=== PATIENT | female | born 1995 | race Caucasian/White ===

== ENCOUNTER 2017-01-26 01:02 | Emergency (ER) | payer BC, OTHER ==
[~2017-01-26] VITALS: Ht 162.6 cm; Wt 56.8 kg
[~2017-01-26 01:02] MED LIST: BCPILLS PO
[2017-01-26 01:08] VITALS: TEMP 37.2; Ht 162.6 cm; Wt 56.8 kg
[2017-01-26 01:43] LABS: HEMATOCRIT 34.2 % (37-47); MEAN CELL VOLUME 88.4 fL (80-100); MEAN CORPUSCULAR HGB CONC 35.1 g/dl (32-36); MEAN PLATELET VOLUME 10.2 fL (7.4-10.4); PLATELET COUNT 226 K/uL (130-400); RED BLOOD COUNT 3.87 M/uL (4.2-5.4); WHITE BLOOD COUNT 8.97 K/uL (4.8-10.8)
[2017-01-26 01:56] LABS: URINE APPEARANCE CLOUDY (CLEAR); URINE BILIRUBIN NEG (NEG); URINE COLOR YELLOW; URINE EPITHELIAL CELL AUTO >30 /lpf (0-5); URINE NITRITE NEG (NEG); URINE PH 6.5 (4.5-7.5); URINE SPECIFIC GRAVITY 1.024 (1.000-1.030); UROBILINOGEN NEG (NEG)
[2017-01-26 01:57] LABS: MANUAL MICROSCOPIC REQUIRED? NO; REVIEW REQ? YES
[2017-01-26 02:02] LABS: ALT/SGPT 100 U/L (12-78); AST/SGOT 192 U/L (15-37); BLOOD UREA NITROGEN 12 mg/dl (7-18); BUN/CREATININE RATIO 15.4 (10-20); CARBON DIOXIDE 25 mmol/L (21-32); CHLORIDE 105 mmol/L (98-107); CREATININE 0.78 mg/dl (0.60-1.20); GLUCOSE 96 mg/dl (70-99); POTASSIUM 3.8 mmol/L (3.5-5.1); SODIUM 140 mmol/L (136-145)
[2017-01-26 02:07] LABS: CALCIUM 9.6 mg/dl (8.5-10.1)
[2017-01-26 02:10] LABS: URINE MUCUS PRESENT (NONE PRSENT)
[2017-01-26 02:12] LABS: ALKALINE PHOSPHATASE 58 U/L (45-117)
[2017-01-26] MEDS ORDERED: [UNRECOGNIZED DRUG - CODE] PO (02:13)
[2017-01-26 02:15] LABS: BENZODIAZEPINE, URINE NEG (NEG); COCAINE,URINE NEG (NEG); PHENCYCLIDINE, URINE NEG (NEG)
[2017-01-26 02:20] LABS: BASO % 0.2 %; BASO ABS # 0.02 K/uL (0-0.2); COMPLETE YES; EOS % 0.8 %; IG% 0.3 %; LYMPH % 21.6 %; LYMPH ABS # 1.94 K/uL (1.2-3.4); MONO % 9.1 %
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
[2017-01-26 10:25] VITALS: BP 108/77; PULSE 110; O2SAT 96
--- NOTE | 2017-01-26 21:02 | EMERGENCY ROOM VISIT NOTE ---
ED Visit Note First contact with patient: 07:39 I received this pt in signout at the change of shift from Dr Castillo, pending MH evaluation. Pt was accepted on a 201 to the [facility]. Secure transport arrangements were made. Please refer to Dr Castillo's notes for further details.
== END 2017-01-26 10:24 ==
LOC: C.EDB 01:03 → C.EDA 10:24
DX: F39 Unspecified mood [affective] disorder (principal); R45.851 Suicidal ideations; R74.0 Nonspecific elevation of levels of transaminase and lactic acid dehydrogenase [LDH]; Z83.3 Family history of diabetes mellitus; Z82.49 Family history of ischemic heart disease and other diseases of the circulatory system

== ENCOUNTER 2022-08-26 01:42 | Inpatient (IN) ==
[2022-08-26] MEDS ORDERED: ONDANSETRON INJ 2 MG/ML 2 ML VIAL IV STA (01:58)
[2022-08-26] MEDS: MoRPHine SULFATE 4 MG/ML 1 ML CARP\\VIAL IV PRN ×2 (02:31→06:34)
[2022-08-26 03:15] LABS: Basophils # (auto) 0.04 K/uL (0-0.2); Basophils % (auto) 0.3 %; Eosinophils # (auto) 0.09 K/uL (0-0.50); Eosinophils % (auto) 0.6 %; Hematocrit (blood only) 29.4 % (34.1-44.9); Hemoglobin 10.2 g/dl (12.0-16.0); Immature Granulocytes # (auto) 0.06 K/uL (0.00-0.02); Immature Granulocytes % (auto) 0.4 %; Lymphocytes # (auto) 2.56 K/uL (1.2-3.4); Lymphocytes % (auto) 16.8 %; Mean Corpuscular Hemoglobin 31.9 pg (25.0-34.0); Mean Corpuscular Hgb Conc 34.7 g/dL (32.0-36.0); Mean Corpuscular Volume 91.9 fL (80.0-100.0); Mean Platelet Volume 11.4 fL (9.4-12.3); Monocytes # (auto) 0.91 K/uL (0.24-0.82); Neutrophils # (auto) 11.62 K/uL (1.4-6.5); Neutrophils % (auto) 75.9 %; Platelet Count 231 K/uL (130-400); RDW Coefficient of Variation 11.8 % (11.5-14.5); RDW Standard Deviation 39.5 fL (36.4-46.3); White Blood Count 15.28 K/ul (4.8-10.8)
[2022-08-26 03:28] LABS: Albumin Globulin Ratio 1.3 (0.9-2); Albumin Level 4.2 gm/dl (3.4-5.0); BUN Creatinine Ratio 15.3 (10-20); Bilirubin,Total 0.3 mg/dl (0.2-1.0); Creatinine Clr Calc Pharmacy 103.1 ml/min; Est GFR (African American) 134.9 ml/min; Est GFR (Non-African American) 116.4 ml/min; Globulin 3.2 gm/dl (2.5-4.0); Magnesium 2.1 mg/dl (1.7-2.4); Potassium 3.6 mmol/L (3.5-5.1); Total Protein 7.4 gm/dl (6.0-8.3)
[2022-08-26 03:29] LABS: Pregnancy Test, Serum Negative (Negative)
[2022-08-26] MEDS ORDERED: IOVERSOL 350 MG 100mL Prefilled Syringe IV ONE (04:58)
[2022-08-26] MEDS ORDERED: SODIUM CHLORIDE 0.9% 1000ML 1,000 ML IV SCH ×2 (06:00→06:30)
[2022-08-26 06:14] LABS: iSTAT Creatinine 0.5 mg/dl (0.6-1.3); iSTAT Hemoglobin 8.8 g/dl (12.0-16.0); iSTAT Ionized Calcium 1.21 mmol/l (1.12-1.32); iSTAT Potassium 3.8 mmol/L (3.3-5.0)
[2022-08-26] MEDS ORDERED: SODIUM CHLORIDE 0.9% 250 ML IV PRN (07:36)
--- NOTE | 2022-08-26 07:44 | History & Physical Bridge Note ---
Date of Service August 26, 2022 History & Physical Bridge Note I have examined the patient, reviewed the History & Physical and in the interval since the performance of the History & Physical I have noted the following changes of clinical significance: no changes noted
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
--- NOTE | 2022-08-26 07:52 | Emergency Department Note ---
History of Present Illness General Chief complaint: Abdominal Pain Stated complaint: SEVERE LOWER ABD PAIN,VOMITING AND DIARRHEA Time Seen by Provider: 08/26/22 01:58 History of Present Illness Maximum Pain Intensity: 7 This is a 26-year-old female presenting to the emergency department for evaluation of very low abdominal pain that began roughly 4 hours prior to arrival. The patient states that she was having intercourse with a male partner when she had a large amount of lower abdominal pain. The patient has had a few episodes of postcoital pain in the past but nothing to this extent. She does not have any fevers or chills. No chest pain, chest tightness, shortness of breath. No vaginal bleeding, drainage, or discharge. No concern for STDs. The patient is on control and does not believe that she is . She rates her discomfort a 7/10. Home Medications Medication Instructions Recorded Confirmed Type famotidine 40 mg tablet (Pepcid) 40 mg PO HS #30 tabs 06/13/21 Rx norethindrone acetate 1 mg-ethinyl 1 tab PO DAILY 06/13/21 06/13/21 History estradiol 20 mcg tablet (Crystal) prednisone 20 mg tablet See Rx Instructions .Route 06/13/21 Rx .COMPLEX #7 tabs Allergies Allergy/AdvReac Type Severity Reaction Status Date / Time latex Allergy Unknown UNKNOWN Verified 06/13/21 13:42 Past Med/Surg History Medical History Ruptured ovarian cyst Seizure-like activity Syncope Surgical History Surgical history unknown Social History Smoking Status: Never smoker Feels Safe at Home: Yes Review of Systems A total of 10 systems reviewed and were otherwise negative Physical Exam Vital Signs Vital Signs - 24 hr 08/26/22 01:46 08/26/22 05:30 08/26/22 04:00 Temperature 36.0 C L Temperature Source Temporal Artery Scan Pulse Rate 120 H 70 68 Pulse Rate [Apical] Pulse Rhythm [Apical] Pulse Strength [Apical] Respiratory Rate 18 17 17 Respiratory Effort / Characteristics Respiratory Depth Blood Pressure 99/57 L 95/52 L 99/55 L Blood Pressure [Left Arm] Blood Pressure Mean 71 66 69 Blood Pressure Mean [Left Arm] Pulse Oximetry 95 99 99 Oxygen Delivery Method Room Air Room Air Room Air Sepsis Recent Fever Within 48 Hours No Sepsis New/Unexplained Change in Mental Status No Sepsis Action Taken by Nursing No Action Required 08/26/22 03:30 08/26/22 07:30 Temperature Temperature Source Pulse Rate 77 Pulse Rate [Apical] 83 Pulse Rhythm [Apical] Regular Pulse Strength [Apical] Normal Respiratory Rate 16 18 Respiratory Effort / Characteristics Non-Labored Spontaneous Respiratory Depth Normal Blood Pressure 105/62 Blood Pressure [Left Arm] 104/57 L Blood Pressure Mean 76 Blood Pressure Mean [Left Arm] 72 Pulse Oximetry 96 97 Oxygen Delivery Method Room Air Sepsis Recent Fever Within 48 Hours Sepsis New/Unexplained Change in Mental Status Sepsis Action Taken by Nursing VITALS: Vitals are noted on the nurse's note and reviewed by myself. Vital signs with tachycardia GENERAL: Well-developed, well-nourished, white female, who is pale and moderately uncomfortable. HEAD: Normocephalic atraumatic. NECK: Supple without nuchal rigidity. No lymphadenopathy. No thyromegaly. Cervical spine is nontender. HEART: Regular rate and rhythm without murmurs gallops or rubs. LUNGS: Clear to auscultation bilaterally without wheezes, rales or rhonchi. No retractions or accessory muscle use. ABDOMEN: Positive normal bowel sounds x 4. Soft diffuse lower tenderness. MUSCULOSKELETAL: No muscle atrophy, erythema, or edema noted. Full range of motion in all extremities. Course Administered Medications Morphine Sulfate (Morphine Sulfate 4 Mg/Ml 1 Ml Carp\Vial) 4 mg IV Q30M PRN PRN Reason: Pain Stop: 09/09/22 01:57 Last Admin: 08/26/22 06:34 Dose: 4 mg Documented By: Admin: 08/26/22 02:31 Dose: 4 mg Documented By: SHANDA Discontinued Medications Sodium Chloride (Nss 1000ml) 1,000 mls @ 999 mls/hr IV .Q1H1M BJORN Stop: 08/26/22 07:00 Last Infusion: 08/26/22 03:31 Dose: 0 mls/hr Documented By: Admin: 08/26/22 02:30 Dose: 999 mls/hr Documented By: SHANDA Sodium Chloride (Nss 1000ml) 1,000 mls @ 999 mls/hr IV .Q1H1M BJORN Stop: 08/26/22 07:30 Last Infusion: 08/26/22 07:35 Dose: 0 mls/hr Documented By: Admin: 08/26/22 06:34 Dose: 999 mls/hr Documented By: SHANDA Ioversol (Ioversol 350 Mg 100ml Prefilled Syringe) 94 ml IV ONCE ONE Stop: 08/26/22 04:59 Last Admin: 08/26/22 04:59 Dose: 94 ml Documented By: ADELE Ondansetron HCl (Ondansetron Inj 2 Mg/Ml 2 Ml Vial) 4 mg IV NOW STA Stop: 08/26/22 01:59 Last Admin: 08/26/22 02:30 Dose: 4 mg Documented By: SHANDA Medical Decision Making Differential Diagnosis Differential diagnosis: Etiologies such as biliary colic, cholecystitis, hepatitis, pancreatitis, cardiac disease, pancreatitis, gastritis, peptic ulcer disease, appendicitis, cystitis, diverticulitis, mesenteric ischemia, inflammatory bowel disease, ileus, bowel obstruction, testicular/adnexal torsion, aortic pathology, shingles, as well as others were considered Laboratory Data Result diagrams: 08/26/22 02:03 08/26/22 02:03 Lab Results 08/26/22 08/26/22 08/26/22 Range/Units 02:03 02:03 02:03 WBC 15.28 H (4.8-10.8) K/ul RBC 3.20 L (3.93-5.22) M/uL Hgb 10.2 L (12.0-16.0) g/dl POC Hgb (12.0-16.0) g/dl Hct 29.4 L (34.1-44.9) % POC Hct (37-47) % MCV 91.9 (80.0-100.0) fL MCH 31.9 (25.0-34.0) pg MCHC 34.7 (32.0-36.0) g/dL RDW Std Deviation 39.5 (36.4-46.3) fL RDW Coeff of Uday 11.8 (11.5-14.5) % Plt Count 231 (130-400) K/uL MPV 11.4 (9.4-12.3) fL Immature Gran % (Auto) 0.4 % Neut % (Auto) 75.9 % Lymph % (Auto) 16.8 % [place] % (Auto) 6.0 % Eos % (Auto) 0.6 % Baso % (Auto) 0.3 % Neut # (Auto) 11.62 H (1.4-6.5) K/uL Lymph # (Auto) 2.56 (1.2-3.4) K/uL [place] # (Auto) 0.91 H (0.24-0.82) K/uL Eos # (Auto) 0.09 (0-0.50) K/uL Baso # (Auto) 0.04 (0-0.2) K/uL Immature Gran # (Auto) 0.06 H (0.00-0.02) K/uL POC Sodium (135-144) mmol/L Sodium 135 L (136-145) mmol/L POC Potassium (3.3-5.0) mmol/L Potassium 3.6 (3.5-5.1) mmol/L POC Chloride (101-112) mmol/L Chloride 105 (98-107) mmol/L Carbon Dioxide 21 (21-32) mmol/L POC Total CO2 (24-31) mmol/L Anion Gap 9 (3-11) POC Anion Gap (16-25) mmol/L POC BUN (7-18) mg/dl BUN 11 (6-23) mg/dl Creatinine 0.72 (0.6-1.2) mg/dl POC Creatinine (0.6-1.3) mg/dl Est Cr Clr Drug Dosing 103.1 ml/min Est GFR ( Amer) 134.9 ml/min Est GFR (Non-Af Amer) 116.4 ml/min BUN/Creatinine Ratio 15.3 (10-20) Glucose 110 H (70-99(Fasting)) mg/dl POC Glucose (other) (70-99) mg/dl Calcium 9.0 (8.5-10.1) mg/dl POC Ioniz Calcium Geremias (1.12-1.32) mmol/l Magnesium 2.1 (1.7-2.4) mg/dl Total Bilirubin 0.3 (0.2-1.0) mg/dl AST 16 (13-39) U/L ALT 13 (7-52) U/L Alkaline Phosphatase 46 (34-104) U/L Total Protein 7.4 (6.0-8.3) gm/dl Albumin 4.2 (3.4-5.0) gm/dl Globulin 3.2 (2.5-4.0) gm/dl Albumin/Globulin Ratio 1.3 (0.9-2) Lipase 30 (11-82) U/L HCG, Qual Negative (Negative) SARS-CoV-2, RNA, NAAT (NEGATIVE) Blood Type Antibody Screen Crossmatch 08/26/22 08/26/22 08/26/22 Range/Units 06:01 06:27 06:40 WBC (4.8-10.8) K/ul RBC (3.93-5.22) M/uL Hgb (12.0-16.0) g/dl POC Hgb 8.8 L (12.0-16.0) g/dl Hct (34.1-44.9) % POC Hct 26 L (37-47) % MCV (80.0-100.0) fL MCH (25.0-34.0) pg MCHC (32.0-36.0) g/dL RDW Std Deviation (36.4-46.3) fL RDW Coeff of Uday (11.5-14.5) % Plt Count (130-400) K/uL MPV (9.4-12.3) fL Immature Gran % (Auto) % Neut % (Auto) % Lymph % (Auto) % [place] % (Auto) % Eos % (Auto) % Baso % (Auto) % Neut # (Auto) (1.4-6.5) K/uL Lymph # (Auto) (1.2-3.4) K/uL [place] # (Auto) (0.24-0.82) K/uL Eos # (Auto) (0-0.50) K/uL Baso # (Auto) (0-0.2) K/uL Immature Gran # (Auto) (0.00-0.02) K/uL POC Sodium 136 (135-144) mmol/L Sodium (136-145) mmol/L POC Potassium 3.8 (3.3-5.0) mmol/L Potassium (3.5-5.1) mmol/L POC Chloride 101 (101-112) mmol/L Chloride (98-107) mmol/L Carbon Dioxide (21-32) mmol/L POC Total CO2 22 L (24-31) mmol/L Anion Gap (3-11) POC Anion Gap 18.0 (16-25) mmol/L POC BUN 8 (7-18) mg/dl BUN (6-23) mg/dl Creatinine (0.6-1.2) mg/dl POC Creatinine 0.5 L (0.6-1.3) mg/dl Est Cr Clr Drug Dosing ml/min Est GFR ( Amer) ml/min Est GFR (Non-Af Amer) ml/min BUN/Creatinine Ratio (10-20) Glucose (70-99(Fasting)) mg/dl POC Glucose (other) 115 H (70-99) mg/dl Calcium (8.5-10.1) mg/dl POC Ioniz Calcium Geremias 1.21 (1.12-1.32) mmol/l Magnesium (1.7-2.4) mg/dl Total Bilirubin (0.2-1.0) mg/dl AST (13-39) U/L ALT (7-52) U/L Alkaline Phosphatase (34-104) U/L Total Protein (6.0-8.3) gm/dl Albumin (3.4-5.0) gm/dl Globulin (2.5-4.0) gm/dl Albumin/Globulin Ratio (0.9-2) Lipase (11-82) U/L HCG, Qual (Negative) SARS-CoV-2, RNA, NAAT NEGATIVE (NEGATIVE) Blood Type O Positive Antibody Screen NEGATIVE Crossmatch See Detail Imaging Data Radiologist's Impression: Abdomen/Pelvis CT 08/26/22 01:[address] WITH IV AND ORAL CONTRAST CT DOSE: 278.62 mGy.cm HISTORY: Lower abdominal pain TECHNIQUE: Multiaxial CT images of the abdomen and pelvis were performed following the use of intravenous and oral contrast. A dose lowering technique was utilized adhering to the principles of ALARA. COMPARISON STUDY: None. FINDINGS: The lung bases are clear. No pneumoperitoneum. No pneumatosis. No fractures within the visualized osseous structures. The liver, gallbladder, spleen, adrenal glands, pancreas, and kidneys are within normal limits. No retroperitoneal lymphadenopathy. Normal caliber abdominal aorta. The main portal vein is patent. The bladder, uterus, left ovary within normal limits. There is a partially collapsed thick-walled cyst within the right ovary measuring 2.4 cm. There is a small to moderate amount of hemoperitoneum seen throughout the abdomen and pelvis. This is most pronounced at the pelvic cul-de-sac. No bowel wall thickening or obstruction. The pattern is not identified with certainty. IMPRESSION: 1. Small to moderate amount of hemoperitoneum is present in the pelvic c ul-de-sac. There is a partially collapsed 2.4 cm right ovarian cyst. Therefore, these findings favor a ruptured ovarian cyst. Recommend correlation with beta- hCG to exclude the less likely possibility of an ectopic . 2. The appendix is not identified with certainty. Consider repeat CT examination of the patient's abdominal pain persists. 3. No bowel wall thickening or obstruction. ACT 112: Negative or not required by law. MDM Narrative Physical exam and history were performed. Nursing notes, EMR, and Medication List were personally reviewed. Patient appears to have lower abdominal pain that began acutely around midnight. This was in the context of intercourse. She is not having vaginal pain, drainage, or discharge. IV access was established and labs were obtained. She was given IV morphine and IV Zofran. She was hydrated normal saline. She was prepped for CT scan with IV and oral contrast. An order was placed for continuous cardiac monitoring. The monitor shows a rate of 83 with normal sinus rhythm. The patient's blood work is as above and was reviewed. She does have a white blood cell count elevation of 15,000. Hemoglobin is 10.2. Lipase and transaminases are not diagnostic. is negative. COVID is negative. CT scan was reviewed by myself and radiology and does show a moderate amount of blood within the abdomen concerning for ruptured hemorrhagic ovarian cyst. Patient was reevaluated multiple times throughout the course of her stay. She continues to seem quite pale and repeat hemoglobin was performed 4 hours after the initial, and this has dropped to 8.8. Second IV was established, and patient was given a second liter of normal saline. Type and screen was performed. Patient continues to be with concerning vital signs, and she is orthostatic with any movement. She does continue with persisting pain. I did reach out to ASSOCIATE PROFESSOR OF COUNSELING, Dr. Martinez, who did evaluate the patient here in the ER. The case was also discussed with my attending, Dr. Mann, who did evaluate the patient at bedside. At this point blood consents were performed, and signed. Patient was ordered transfusion for [address] Martinez did consent the patient for the OR. Current plan is to assess patient's response to blood products and reevaluate for possible OR intervention. Please see Dr Martinez's dictation for further patient course, plan, and disposition. The chart was completed utilizing [employer] Speech Voice Recognition Software. Grammatical errors, random word insertions, pronoun errors, and incomplete sentences are an occasional consequence of this system due to software limitations, ambient noise, and hardware issues. Any formal questions or concerns about the content, text, or information contained within the body of this dictation should be directly addressed to the provider for clarification. . Impression & Plan Lower abdominal pain, Rupture of cyst of right ovary, Hemoperitoneum, Anemia Critical Care Time I have personally spent greater than 62 minutes of critical care time in the direct management of this patient. This includes bedside care, interpretation of diagnostic studies, and testing, discussion with consultants, patient, and family members, and other required patient management activities. This 62 minutes is in excess of all separately billable procedures. Discharge Plan Visit Data Chief Complaint: Abdominal Pain Stated Complaint: SEVERE LOWER ABD PAIN,VOMITING AND DIARRHEA ED Provider: Rio Mann ED Midlevel Provider: Adarsh Brito Discharge Problem: Lower abdominal pain, Rupture of cyst of right ovary, Hemoperitoneum, Anemia Forms Stand Alone Forms: [facility] [place] Prescriptions Prescriptions: No Action norethindrone ac-eth estradiol [Crystal 12/17 ()] 1-20 mg-mcg tablet 1 tab PO DAILY prednisone 20 mg tablet See Rx Instructions .Route .COMPLEX Qty: 7 0RF Rx Instructions: 20 mg orally ;Take 2 tabs for two days then 1 tab for 2 days then 1/2 tabs for 2 days famotidine [Pepcid] 40 mg tablet 40 mg PO HS Qty: 30 0RF Referrals Referrals: Lilly Blanco PA-C [Primary Care Provider] -
--- NOTE | 2022-08-26 08:27 | CT Scan Report ---
ABDOMEN AND PELVIS CT WITH IV AND ORAL CONTRAST CT DOSE: 278.62 mGy.cm HISTORY: Lower abdominal pain TECHNIQUE: Multiaxial CT images of the abdomen and pelvis were performed following the use of intrave nous and oral contrast. A dose lowering technique was utilized adhering to the principles of ALARA. COMPARISON STUDY: None. FINDINGS: The lung bases are clear. No pneumoperitoneum. No pneumatosis. No fractures within the visu alized osseous structures. The liver, gallbladder, spleen, adrenal glands, pancreas, and kidneys are within normal limits. No retroperitoneal lymphadenopathy. Normal caliber abdominal aorta. The main po rtal vein is patent. The bladder, uterus, left ovary within normal limits. There is a partially colla psed thick-walled cyst within the right ovary measuring 2.4 cm. There is a small to moderate amount o f hemoperitoneum seen throughout the abdomen and pelvis. This is most pronounced at the pelvic cul-de -sac. No bowel wall thickening or obstruction. The appendix is difficult to visualize due to the pelv ic fluid but likely normal in caliber with the tip located in image 311. IMPRESSION: 1. Small to moderate amount of hemoperitoneum is present in the pelvic cul-de-sac. There is a partial ly collapsed 2.4 cm right ovarian cyst. Therefore, these findings favor a ruptured ovarian cyst. Renzo mmend correlation with beta-hCG to exclude the less likely possibility of an ectopic . 2. The appendix is difficult to visualize due to the pelvic fluid but likely normal in caliber. Consi lyn repeat CT examination if the patient's abdominal pain persists. 3. No bowel wall thickening or obstruction. ACT 112: Negative or not required by law. Electronically signed by: Mani Reeves M.D. 08/26/2022 10:23 AM
--- NOTE | 2022-08-26 08:27 | Emergency Department Note ---
ED Visit Note I was consulted by the Advanced Practice Provider. I saw the patient personally and performed a substantive portion of the visit. This includes aspects of the HPI, MDM, diagnostic interpretations, and disposition/plan. .
--- NOTE | 2022-08-26 09:06 | Progress Note ---
Date of Service August 26, 2022 Assessment & Plan (1) Rupture of cyst of right ovary: Plan: Met Pt and mother Reviewed sequence of events with Mom risk and benefits of surgery are discussed including possible oophorectomy and laparotomy Mom wishes to do expectant management for now and pt is in agreement Vitals are stable and pt is ordered 2 units PRBC Case is reviewed with Dr Chatterjee- Attending personnel monitor OR is called and surgery is held off for now Results & Data ([facility]) Vital Signs (Past 12 Hours) Vital Signs Temp Pulse Pulse Resp BP BP Pulse Ox 08/26/22 08:43 37.2 C 79 18 120/62 97 08/26/22 07:30 83 18 104/57 L 97 08/26/22 03:30 77 16 105/62 96 08/26/22 04:00 68 17 99/55 L 99 08/26/22 05:30 70 17 95/52 L 99 08/26/22 01:46 36.0 C L 120 H 18 99/57 L 95 O2 Del Method 08/26/22 08:43 Room Air 08/26/22 07:30 08/26/22 03:30 Room Air 08/26/22 04:00 Room Air 08/26/22 05:30 Room Air 08/26/22 01:46 Room Air
--- NOTE | 2022-08-26 10:09 | Anesthesiology Consultation ---
Date of Service August 26, 2022 Assessment & Plan Chart Review Chart Review: Acceptable Risk for Surgery and Patient NOT seen in Pre Admission Testing Consults Requested none ASA [id number] Proposed Anesthesia Anesthesia Type: General History Surgery Operation Date: 08/26/22 11:10 Proposed Procedures p Diagnostic Laparoscopy, Possible Right Oophorectomy, Possible Laparotomy - Joaquin Martinez MD Height/Weight Height: 5 ft 4 in Weight: 62.1 kg Allergies Allergy/AdvReac Type Severity Reaction Status Date / Time latex Allergy Unknown UNKNOWN Verified 06/13/21 13:42 Medications Home Medications Medication Instructions Recorded Confirmed Last Taken famotidine 40 mg tablet (Pepcid) 40 mg PO HS #30 tabs 06/13/21 Unknown norethindrone acetate 1 mg-ethinyl 1 tab PO DAILY 06/13/21 06/13/21 06/12/21 estradiol 20 mcg tablet (Crystal) prednisone 20 mg tablet See Rx Instructions .Route 06/13/21 Unknown .COMPLEX #7 tabs Active Medications Generic Name Dose Route Start Last Admin Trade Name Hugh PRN Reason Stop Dose Admin Morphine Sulfate 4 mg 08/26/22 01:58 08/26/22 06:34 Morphine Sulfate 4 Mg/Ml 1 Ml Carp\Vial IV 09/09/22 01:57 4 mg Q30M PRN Administration Pain Past Medical History Medical History Ruptured ovarian cyst Seizure-like activity Syncope Exercise / Class Metabolic Activity 1 > 8 Run/Swim/Ski/Tennis Past Surgical History Surgical History Surgical history unknown Past Anesthesia History No Hx of Anesthesia Complications and No Family Hx of Anesthesia Complications History of PONV No Hx of PONV and No Hx of Motion Sickness Social History Smoking Status: Never smoker Physical Exam Vital Signs Last Vital Signs Temp 37.1 C 08/26/22 09:26 Pulse 71 08/26/22 10:02 Resp 14 08/26/22 10:02 BP 93/57 L 08/26/22 10:02 Pulse Ox 97 08/26/22 10:02 O2 Del Method 08/26/22 08:43 Testing Laboratory Results 08/26/22 02:03 08/26/22 02:03 Blood Type O Positive 08/26/22 06:27 Antibody Screen NEGATIVE 08/26/22 06:27 08/26/22 06:01 POC Glucose (other) 115 H Electrocardiogram Date: 06/13/21 Findings: + NSR @ (@ 83 w/short [place])
[2022-08-26 12:54] LABS: Appearance Urine Clear (Clear); Bilirubin Urine Negative (Negative); Blood Urine Negative (Negative); Color Urine Yellow; Glucose Urine UA Negative (Negative); Ketones Urine Negative (Negative); Leukocyte Esterase Urine Negative (Negative); Nitrite Urine Negative (Negative); Protein Urine Negative (Negative); Specific Gravity Urine 1.043 (1.000-1.030); Urobilinogen Urine Negative (Negative); pH Urine 7.5 (4.5-7.5)
[2022-08-26 13:43] LABS: Amphetamines+Metham, Urine Neg (Neg); Barbiturates, Urine Neg (Neg); Benzodiazepine, Urine Neg (Neg); Cocaine, Urine Neg (Neg); MDMA (Ecstacy), Urine Neg (Neg); Methadone, Urine Neg (Neg); Opiate, Urine Pos (Neg); Phencyclidine, Urine Neg (Neg)
--- NOTE | 2022-08-26 15:22 | Gynecologic Progress Note ---
Date of Service August 26, 2022 Assessment & Plan (1) Rupture of cyst of right ovary: Present on Admission?: Yes Plan observe over night as the pt is stable at this time discussed with the pt and mom , desires for expectant management. Admission and Anticipated Discharge Date Anticipated date of discharge: 08/27/22 Subjective ruptured Hemorrhagic cyst Physical Exam Constitutional: WD/WN, vitals as above Gastrointestinal (Abdomen): normal bowel sounds, soft, nontender, no hepatosplenomegaly Results & Data ([facility]) Vital Signs (Past 12 Hours) Vital Signs Temp Pulse Pulse Resp BP BP Pulse Ox 08/26/22 13:57 37.5 C 77 17 100/59 L 96 08/26/22 12:25 79 19 104/60 99 08/26/22 12:10 90 19 104/60 98 08/26/22 12:10 37.5 C 79 18 101/54 L 98 08/26/22 11:48 37.3 C 79 18 98/52 L 99 08/26/22 10:46 67 18 90/56 L 97 08/26/22 10:02 71 14 93/57 L 97 08/26/22 09:26 37.1 C 77 18 105/57 L 98 08/26/22 09:10 37.2 C 81 16 102/63 100 08/26/22 08:43 37.2 C 79 18 120/62 97 08/26/22 07:30 83 18 104/57 L 97 08/26/22 03:30 77 16 105/62 96 08/26/22 04:00 68 17 99/55 L 99 08/26/22 05:30 70 17 95/52 L 99 O2 Del Method 08/26/22 13:57 08/26/22 12:25 08/26/22 12:10 08/26/22 12:10 08/26/22 11:48 08/26/22 10:46 08/26/22 10:02 08/26/22 09:26 08/26/22 09:10 08/26/22 08:43 Room Air 08/26/22 07:30 08/26/22 03:30 Room Air 08/26/22 04:00 Room Air 08/26/22 05:30 Room Air
[2022-08-26 16:06] LABS: Hematocrit (blood only) 30.5 % (34.1-44.9); Hemoglobin 10.5 g/dl (12.0-16.0)
[2022-08-26] MEDS ORDERED: Nursing to Pharmacy Communication SCH (17:15)
[2022-08-26] MEDS ORDERED: oxyCODONE/ACETAMINOPHEN 5mg/325mg TAB PO PRN (17:42)
[2022-08-26 18:39] LABS: Basophils # (auto) 0.03 K/uL (0-0.2); Basophils % (auto) 0.4 %; Eosinophils # (auto) 0.08 K/uL (0-0.50); Hematocrit (blood only) 31.7 % (34.1-44.9); Hemoglobin 10.8 g/dl (12.0-16.0); Immature Granulocytes # (auto) 0.02 K/uL (0.00-0.02); Immature Granulocytes % (auto) 0.2 %; Lymphocytes # (auto) 1.97 K/uL (1.2-3.4); Mean Corpuscular Hemoglobin 31.6 pg (25.0-34.0); Mean Corpuscular Hgb Conc 34.1 g/dL (32.0-36.0); Mean Corpuscular Volume 92.7 fL (80.0-100.0); Mean Platelet Volume 10.8 fL (9.4-12.3); Monocytes # (auto) 0.78 K/uL (0.24-0.82); Monocytes % (auto) 9.5 %; Neutrophils # (auto) 5.34 K/uL (1.4-6.5); Neutrophils % (auto) 64.9 %; Platelet Count 144 K/uL (130-400); RDW Coefficient of Variation 12.4 % (11.5-14.5); RDW Standard Deviation 42.2 fL (36.4-46.3); Red Blood Count 3.42 M/uL (3.93-5.22); White Blood Count 8.22 K/ul (4.8-10.8)
[2022-08-27 07:26] LABS: Basophils # (auto) 0.01 K/uL (0-0.2); Basophils % (auto) 0.2 %; Eosinophils # (auto) 0.13 K/uL (0-0.50); Hematocrit (blood only) 32.9 % (34.1-44.9); Hemoglobin 11.1 g/dl (12.0-16.0); Immature Granulocytes # (auto) 0.01 K/uL (0.00-0.02); Immature Granulocytes % (auto) 0.2 %; Lymphocytes # (auto) 1.96 K/uL (1.2-3.4); Lymphocytes % (auto) 30.8 %; Mean Corpuscular Hemoglobin 31.2 pg (25.0-34.0); Mean Corpuscular Hgb Conc 33.7 g/dL (32.0-36.0); Mean Corpuscular Volume 92.4 fL (80.0-100.0); Mean Platelet Volume 10.8 fL (9.4-12.3); Monocytes # (auto) 0.73 K/uL (0.24-0.82); Monocytes % (auto) 11.5 %; Neutrophils # (auto) 3.52 K/uL (1.4-6.5); Neutrophils % (auto) 55.3 %; Platelet Count 155 K/uL (130-400); RDW Coefficient of Variation 12.2 % (11.5-14.5); RDW Standard Deviation 41.8 fL (36.4-46.3); Red Blood Count 3.56 M/uL (3.93-5.22); White Blood Count 6.36 K/ul (4.8-10.8)
--- NOTE | 2022-08-27 09:50 | Gynecologic Progress Note ---
Date of Service August 27, 2022 Assessment & Plan Admission and Anticipated Discharge Date Admission Date: August 26, 2022 Subjective doing well no further pain Review of Systems Review of Systems: All systems reviewed & are unremarkable except as noted in HPI & below Physical Exam Constitutional: WD/WN, vitals as above Respiratory: normal respiratory effort, lungs clear to auscultation Gastrointestinal (Abdomen): abdomen soft and non-tender Musculoskeletal: Extremities: extremities normal to inspection Neurologic: patellar DTR's 2+ bilat, sensation intact Results & Data ([facility]) Vital Signs (Past 12 Hours) Vital Signs Temp Pulse Resp BP Pulse Ox O2 Del Method 08/27/22 07:50 37.4 C 85 16 103/58 L 98 Room Air 08/27/22 05:15 36.8 C 86 18 102/53 L 99 Room Air 08/27/22 03:51 37.1 C 78 16 95/51 L 95 Room Air 08/26/22 22:57 36.8 C 80 16 95/49 L 94 Room Air Laboratory Results Laboratory Results - last 72 hr 08/26/22 08/26/22 08/26/22 02:03 02:03 02:03 WBC 15.28 H RBC 3.20 L Hgb 10.2 L POC Hgb Hct 29.4 L POC Hct MCV 91.9 MCH 31.9 MCHC 34.7 RDW Std Deviation 39.5 RDW Coeff of Uday 11.8 Plt Count 231 MPV 11.4 Immature Gran % (Auto) 0.4 Neut % (Auto) 75.9 Lymph % (Auto) 16.8 [place] % (Auto) 6.0 Eos % (Auto) 0.6 Baso % (Auto) 0.3 Neut # (Auto) 11.62 H Lymph # (Auto) 2.56 [place] # (Auto) 0.91 H Eos # (Auto) 0.09 Baso # (Auto) 0.04 Immature Gran # (Auto) 0.06 H POC Sodium Sodium 135 L POC Potassium Potassium 3.6 POC Chloride Chloride 105 Carbon Dioxide 21 POC Total CO2 Anion Gap 9 POC Anion Gap POC BUN BUN 11 Creatinine 0.72 POC Creatinine Est Cr Clr Drug Dosing 103.1 Est GFR ( Amer) 134.9 Est GFR (Non-Af Amer) 116.4 BUN/Creatinine Ratio 15.3 Glucose 110 H POC Glucose (other) Calcium 9.0 POC Ioniz Calcium Geremias Magnesium 2.1 Total Bilirubin 0.3 AST 16 ALT 13 Alkaline Phosphatase 46 Total Protein 7.4 Albumin 4.2 Globulin 3.2 Albumin/Globulin Ratio 1.3 Lipase 30 HCG, Qual Negative Urine Color Urine Appearance Urine pH Ur Specific Benld Urine Protein Urine Glucose (UA) Urine Ketones Urine Blood Urine Nitrite Urine Bilirubin Urine Urobilinogen Ur Leukocyte Esterase Urine Opiates Screen Ur Methadone, Qual Urine Barbiturates Ur Phencyclidine (PCP) U Amphetamin/Meth Scrn MDMA (Ecstasy) Screen U Benzodiazepines Scrn Ur Cocaine Metabolite U Marijuana (THC) Screen SARS-CoV-2, RNA, NAAT Blood Type Blood Type Recheck Antibody Screen Crossmatch 08/26/22 08/26/22 08/26/22 06:01 06:27 06:40 WBC RBC Hgb POC Hgb 8.8 L Hct POC Hct 26 L MCV MCH MCHC RDW Std Deviation RDW Coeff of Uday Plt Count MPV Immature Gran % (Auto) Neut % (Auto) Lymph % (Auto) [place] % (Auto) Eos % (Auto) Baso % (Auto) Neut # (Auto) Lymph # (Auto) [place] # (Auto) Eos # (Auto) Baso # (Auto) Immature Gran # (Auto) POC Sodium 136 Sodium POC Potassium 3.8 Potassium POC Chloride 101 Chloride Carbon Dioxide POC Total CO2 22 L Anion Gap POC Anion Gap 18.0 POC BUN 8 BUN Creatinine POC Creatinine 0.5 L Est Cr Clr Drug Dosing Est GFR ( Amer) Est GFR (Non-Af Amer) BUN/Creatinine Ratio Glucose POC Glucose (other) 115 H Calcium POC Ioniz Calcium Geremias 1.21 Magnesium Total Bilirubin AST ALT Alkaline Phosphatase Total Protein Albumin Globulin Albumin/Globulin Ratio Lipase HCG, Qual Urine Color Urine Appearance Urine pH Ur Specific Benld Urine Protein Urine Glucose (UA) Urine Ketones Urine Blood Urine Nitrite Urine Bilirubin Urine Urobilinogen Ur Leukocyte Esterase Urine Opiates Screen Ur Methadone, Qual Urine Barbiturates Ur Phencyclidine (PCP) U Amphetamin/Meth Scrn MDMA (Ecstasy) Screen U Benzodiazepines Scrn Ur Cocaine Metabolite U Marijuana (THC) Screen SARS-CoV-2, RNA, NAAT NEGATIVE Blood Type O Positive Blood Type Recheck Antibody Screen NEGATIVE Crossmatch See Detail 08/26/22 08/26/22 08/26/22 07:58 12:00 12:00 WBC RBC Hgb POC Hgb Hct POC Hct MCV MCH MCHC RDW Std Deviation RDW Coeff of Uday Plt Count MPV Immature Gran % (Auto) Neut % (Auto) Lymph % (Auto) [place] % (Auto) Eos % (Auto) Baso % (Auto) Neut # (Auto) Lymph # (Auto) [place] # (Auto) Eos # (Auto) Baso # (Auto) Immature Gran # (Auto) POC Sodium Sodium POC Potassium Potassium POC Chloride Chloride Carbon Dioxide POC Total CO2 Anion Gap POC Anion Gap POC BUN BUN Creatinine POC Creatinine Est Cr Clr Drug Dosing Est GFR ( Amer) Est GFR (Non-Af Amer) BUN/Creatinine Ratio Glucose POC Glucose (other) Calcium POC Ioniz Calcium Geremias Magnesium Total Bilirubin AST ALT Alkaline Phosphatase Total Protein Albumin Globulin Albumin/Globulin Ratio Lipase HCG, Qual Urine Color Yellow Urine Appearance Clear Urine pH 7.5 Ur Specific Benld 1.043 H Urine Protein Negative Urine Glucose (UA) Negative Urine Ketones Negative Urine Blood Negative Urine Nitrite Negative Urine Bilirubin Negative Urine Urobilinogen Negative Ur Leukocyte Esterase Negative Urine Opiates Screen Pos H Ur Methadone, Qual Neg Urine Barbiturates Neg Ur Phencyclidine (PCP) Neg U Amphetamin/Meth Scrn Neg MDMA (Ecstasy) Screen Neg U Benzodiazepines Scrn Neg Ur Cocaine Metabolite Neg U Marijuana (THC) Screen Pos H SARS-CoV-2, RNA, NAAT Blood Type Blood Type Recheck O Positive Antibody Screen Crossmatch 08/26/22 08/26/22 08/27/22 15:01 18:09 07:05 WBC 8.22 6.36 RBC 3.42 L 3.56 L Hgb 10.5 L 10.8 L 11.1 L POC Hgb Hct 30.5 L 31.7 L 32.9 L POC Hct MCV 92.7 92.4 MCH 31.6 31.2 MCHC 34.1 33.7 RDW Std Deviation 42.2 41.8 RDW Coeff of Uday 12.4 12.2 Plt Count 144 155 MPV 10.8 10.8 Immature Gran % (Auto) 0.2 0.2 Neut % (Auto) 64.9 55.3 Lymph % (Auto) 24.0 30.8 [place] % (Auto) 9.5 11.5 Eos % (Auto) 1.0 2.0 Baso % (Auto) 0.4 0.2 Neut # (Auto) 5.34 3.52 Lymph # (Auto) 1.97 1.96 [place] # (Auto) 0.78 0.73 Eos # (Auto) 0.08 0.13 Baso # (Auto) 0.03 0.01 Immature Gran # (Auto) 0.02 0.01 POC Sodium Sodium POC Potassium Potassium POC Chloride Chloride Carbon Dioxide POC Total CO2 Anion Gap POC Anion Gap POC BUN BUN Creatinine POC Creatinine Est Cr Clr Drug Dosing Est GFR ( Amer) Est GFR (Non-Af Amer) BUN/Creatinine Ratio Glucose POC Glucose (other) Calcium POC Ioniz Calcium Geremias Magnesium Total Bilirubin AST ALT Alkaline Phosphatase Total Protein Albumin Globulin Albumin/Globulin Ratio Lipase HCG, Qual Urine Color Urine Appearance Urine pH Ur Specific Ben[place] Urine Protein Urine Glucose (UA) Urine Ketones Urine Blood Urine Nitrite Urine Bilirubin Urine Urobilinogen Ur Leukocyte Esterase Urine Opiates Screen Ur Methadone, Qual Urine Barbiturates Ur Phencyclidine (PCP) U Amphetamin/Meth Scrn MDMA (Ecstasy) Screen U Benzodiazepines Scrn Ur Cocaine Metabolite U Marijuana (THC) Screen SARS-CoV-2, RNA, NAAT Blood Type Blood Type Recheck Antibody Screen Crossmatch
[2022-08-28 15:03] LABS: Codeine Urine NEGATIVE ng/mL (<50); Hydrocodone Urine NEGATIVE ng/mL (<50); Hydromor Urine NEGATIVE ng/mL (<50); Marijuana Quant, GCMS Urine 273 ng/mL (<5); Morphine Urine 3480 ng/mL (<50); Norhydrocodone Conf Ur NEGATIVE ng/mL (<50); Noroxycodone Urine NEGATIVE ng/mL (<50); Oxycodone Urine NEGATIVE ng/mL (<50); Oxymorph Urine NEGATIVE ng/mL (<50)
--- NOTE | 2022-09-01 14:37 | Discharge Summary (DS) ---
DATE OF ADMISSION: 08/26/2022. DATE OF DISCHARGE: 08/27/2022. HISTORY OF PRESENT ILLNESS: This is a 26-year-old who presented to the Emergency Room on 08/26/2022 with pain, lethargy and feeling faint. She was seen by the ER physician. CT scan done showed a righ t ovarian cyst rupture with hemoperitoneum. The patient had dropped her hemoglobin from 10 to 8 in a couple of hours. The patient was orthostatic and symptomatic. She was offered surgery initially. Upon arrival, the patient's mother's decision was made to do expectant management. The patient recei he 2 units of blood. She was stabilized and was kept overnight for observation and then discharged home in stable condition on 08/27/2022. PAST MEDICAL HISTORY: The patient has history of ovarian cysts in the past. History of seizure-like activities and syncope. PAST SURGICAL HISTORY: The patient has history of left oophorectomy. SOCIAL HISTORY: The patient denies tobacco, drug or alcohol use. ALLERGIES: No known drug allergies. REVIEW OF SYSTEMS: Negative except as dictated in the HPI. PHYSICAL EXAMINATION: VITAL SIGNS: On 08/27/2022, blood pressure 103/58, pulse of 85, respirations of 16, temperature of 3 7.4. HEART: S1 and S2, regular rhythm and rate. LUNGS: Clear to auscultation bilaterally. ABDOMEN: Slightly tender, nondistended. EXTREMITIES: No cyanosis, clubbing or edema. LABORATORY DATA: On 08/27/2022, WBC was 6.5, hemoglobin was 11.1, hematocrit was 32.9. Platelets wa s 155. OPERATIONS: Ruptured right ovarian cyst, hemoperitoneum. CONDITION ON DISCHARGE: Stable. DIAGNOSES: Observation for right ovarian cyst with hemoperitoneum. PLAN ON DISCHARGE: The patient is discharged home with instructions regarding activity, diet, and fo [facility] appointment. Job ID: [id number]
== END 2022-08-27 11:05 | disposition home or self-care (01) | DRG 760 ==
LOC: ED 01:42 → 4E1 12:34